=== PATIENT | male | born 1930 | race Caucasian/White ===

== ENCOUNTER 2018-07-06 15:54 | Emergency (ER) | payer MEDICARE, OTHER ==
[~2018-07-06] VITALS: Ht 165.1 cm; Wt 81.7 kg
--- NOTE | ~2018-07-06 | CONS ---
[facility] [address] [place], [place] [address] Draft DATE OF CONSULTATION: HISTORY OF PRESENT ILLNESS: Mr. Anna is an 87-year-old white male, who was doing well until earlier today. He usually picks up the empty garbage can from his neighbor's house. He had apparently returned it house and was on the way across the street at his house when he stepped on some ice as he attempted to avoid stepping on some mud. As he did so, his right ankle gave way underneath him and he fell to the ground. He was brought to the emergency room. Our examination and x-ray showed a fracture dislocation of the right ankle. PAST MEDICAL HISTORY: Significant primarily for hypertension. He takes several antihypertensive medications noted on the nurse's notes and he does not have any medical allergies. He said he has never had a heart attack or a stroke. Only complaint is pain in the right ankle. PHYSICAL EXAMINATION: GENERAL: He is a pleasant, bourgeois, alert and oriented, really in no acute distress. HEAD, EARS EYES, NOSE, AND THROAT: Unremarkable. NECK: Supple. CHEST: Clear. CARDIAC: Reveals a regular rhythm. ABDOMEN: Benign. EXTREMITIES: Right ankle shows tenting of the medial malleolus just under the skin and there is sort of a small fracture blister, that has already formed in that area, but the overlying skin appears to be intact. I cannot palpate a pedal pulse on either side, but he has good sensation in the tips of all his toes and the vascular refill is brisk bilaterally. The x-rays were reviewed. He has SER with an intact medial malleolus with lateral dislocation. After discussing the treatment options, I suggested and get a provisional closed reduction. Over the next day or 2, he will need a medical evaluation and once he has been medically optimized, totally probably to stabilize surgically. We explained all potential risks and complications. He was comfortable with proceeding. Nurse electroplating laborer then arrived and gently sedated him with small amount of propofol. We were able to retract a closed reduction rather easily and then placed him in a posterior splint with a sugar-tong. Postreduction films were taken, which showed excellent re-reduction of the ankle joint. PATIENT NAME: EMMY ANNA CONSULTATION DATE OF : 32 REPORT #: [id number] PHYSICIAN: MARIA M PATRICIO MD PCP: OTHER PCP REPORT IS CONFIDENTIAL AND NOT TO BE RELEASED WITHOUT AUTHORIZATION [facility] [address] [place] [id number] [place] I wrote prescription for some tramadol for pain. He can be discharged this evening, but he needs to be nonweightbearing on the right lower extremity. He is to call the office Tuesday morning to make an appointment and I will see him Tuesday with the hopes of getting him on the surgery schedule for Tuesday assuming there are no egregious issues on his preop evaluation. MD BONG Dixon/SHRAVAN /[id number] Copies: ~ PATIENT NAME: EMMY ANNA CONSULTATION DATE OF : 32 REPORT #: [id number] PHYSICIAN: MARIA M PATRICIO MD PCP: OTHER PCP REPORT IS CONFIDENTIAL AND NOT TO BE RELEASED WITHOUT AUTHORIZATION
[2018-07-06] MEDS ORDERED: ULTRAM50 MG PO (18:09)
--- NOTE | 2018-07-06 21:17 | EKG ---
[facility] [address] [facility] [place], [place] [address] Signed Normal sinus rhythm Low voltage QRS Borderline ECG No previous ECGs available Confirmed by SUMEET MCLEAN MD ([id number]) on 07/06/2018 9:16:43 PM Electronically Signed By: SUMEET MCLEAN MD 07/06/18 2117 PATIENT NAME: QI KRUEGERMaggieEMMY Electrocardiogram DATE OF : 32 PHYSICIAN: SUMEET MCLEAN MD REPORT #: [id number] REPORT IS CONFIDENTIAL AND NOT TO BE RELEASED WITHOUT AUTHORIZATION
== END 2018-07-06 19:16 | disposition home or self-care (01) ==
LOC: ED 15:54
PROC: 0QSJXZZ Reposition Right Fibula, External Approach (ICD-10-PCS; principal; 2018-07-06)
DX: S82.451A Displaced comminuted fracture of shaft of right fibula, initial encounter for closed fracture (principal); W00.0XXA Fall on same level due to ice and snow, initial encounter
CPT/HCPCS: 27788; 71045; 73600; 73610; 80048; 85025; 85610; 85730; 93005; 93010; 99156; 99284-25